=== PATIENT | female | born 1965 | race Caucasian/White ===

== ENCOUNTER 2017-03-14 11:25 | Emergency (ER) | payer MEDICAID ==
[~2017-03-14] VITALS: Ht 157.5 cm; Wt 93.1 kg
[~2017-03-14 11:25] MED LIST: CLIN150C2 PO; DIPH-423 PO; FURO20TA4 PO; GUAI120015 PO; OMEP20TA5 PO; PSEU-259 PO; ZOF4T PO
[2017-03-14 12:05] VITALS: BP 118/76
[2017-03-14] MEDS ORDERED: PRED10TA23 PO (13:00)
[2017-03-14] MEDS ORDERED: dexamethasone 4mg/ml inj IM SCH (13:05)
== END 2017-03-14 13:52 | disposition home or self-care (01) ==
LOC: ER 11:26
DX: L30.9 Dermatitis, unspecified (principal); G89.29 Other chronic pain; F17.200 Nicotine dependence, unspecified, uncomplicated; Z86.14 Personal history of Methicillin resistant Staphylococcus aureus infection; Z88.5 Allergy status to narcotic agent
CPT/HCPCS: 96372; 99283; J1100

== ENCOUNTER 2017-03-21 09:45 | Emergency (ER) | payer MEDICAID ==
[~2017-03-21] VITALS: Ht 157.5 cm; Wt 93.0 kg
[~2017-03-21 09:45] MED LIST changes: +PRED10TA23 PO
[2017-03-21] MEDS ORDERED: epiNEPHrine 1 mg/ml inj SQ ONE (11:45)
[2017-03-21] MEDS ORDERED: famotidine/PF 10 mg/ml inj IV ONE (11:45)
[2017-03-21] MEDS ORDERED: diphenhydrAMINE 50 mg/ml inj IV ONE (11:45)
[2017-03-21] MEDS ORDERED: ondansetron/PF 4mg/2ml inj IV ONE (11:45)
[2017-03-21] MEDS ORDERED: methylPREDNISolone sod succ 125mg/2ml vial IV ONE (11:45)
[2017-03-21] MEDS ORDERED: normal saline 1000ML IV soln IVB ONE (11:45)
[2017-03-21 12:06] LABS: BASOPHILS % (AUTO) 0.4 % (0-1); EOSINOPHILS # (AUTO) 0.1 X10'3 (0-0.9); EOSINOPHILS % (AUTO) 1.5 % (0-6); HEMATOCRIT 43.6 % (35.0-45.0); HEMOGLOBIN 14.5 g/dl (12.0-16.0); LYMPHOCYTES # (AUTO) 1.9 X10'3 (1.1-4.8); LYMPHOCYTES % (AUTO) 20.3 % (21-51); MEAN CORPUSCULAR HEMOGLOBIN 30.8 PG (27.0-31.0); MEAN CORPUSCULAR HGB CONC 33.2 % (33.0-36.5); MEAN CORPUSCULAR VOLUME 92.8 FL (78-98); MEAN PLATELET VOLUME 7.5 FL (7.4-10.4); MONOCYTES # (AUTO) 0.1 X10'3 (0-0.9); MONOCYTES % (AUTO) 0.8 % (2-12); NEUTROPHILS # (AUTO) 7.4 X10'3 (1.8-7.7); PLATELET COUNT 321 X10'3 (140-440); RED CELL DISTRIBUTION WIDTH 13.7 % (11.5-14.5); WHITE BLOOD COUNT 9.6 X10'3 (4.5-11.0)
[2017-03-21 12:23] LABS: ALANINE AMINOTRANSFERASE 26 U/L (12-78); ALBUMIN/GLOBULIN RATIO 0.9 (1.1-1.5); ALKALINE PHOSPHATASE 68 IU/L (46-116); ANION GAP 5 (8-16); ASPARTATE AMINO TRANSFERASE 13 U/L (10-37); BILIRUBIN,TOTAL 0.6 MG/DL (0.1-1.0); BLOOD UREA NITROGEN 14 MG/DL (7-18); BUN/CREATININE RATIO 17.7 (6.6-38.0); CALCIUM 8.1 MG/DL (8.5-10.1); CHLORIDE 106 MMOL/L (99-107); CREATININE 0.79 MG/DL (0.40-0.90); GLUCOSE 89 MG/DL (70-104); LIPASE 289 U/L (73-393); POTASSIUM 3.9 MMOL/L (3.5-5.1); SODIUM 140 MMOL/L (135-145); TOTAL CARBON DIOXIDE 28.6 MMOL/L (24-32); TOTAL PROTEIN 6.5 G/DL (6.4-8.2); eGFR 76 ML/MIN
[2017-03-21 12:52] VITALS: BP 109/65
[2017-03-21 13:53] LABS: CLARITY,URINE CLOUDY (Clear); COLOR,URINE YELLOW (Yellow); GLUCOSE, URINE NEGATIVE (Neg); KETONES,URINE TRACE mg/dl (Neg); LEUKOCYTE ESTERASE ,URINE NEGATIVE (Neg); NITRITES, URINE POSITIVE (Neg); OCCULT BLOOD,URINE NEGATIVE (Neg); PROTEIN,URINE NEGATIVE (Neg); UROBILINOGEN,URINE 0.2 E.U/dL (0.2-1.0)
[2017-03-21 13:58] LABS: UA COLLECTION TYPE VOIDED
[2017-03-21 13:59] LABS: BACTERIA,URINE 4+ /HPF (Neg); MUCUS STRANDS FEW /LPF (Neg); RBC,URINE NONE SEEN /HPF (0-2); SQUAMOUS EPITHELIAL CELL,UR FEW /LPF (FEW); TRANSITIONAL EPI CELLS,URINE FEW /HPF; WBC,URINE 0-4 /HPF (0-4)
== END 2017-03-21 14:07 | disposition home or self-care (01) ==
LOC: ER 09:46
DX: L50.9 Urticaria, unspecified (principal); L29.9 Pruritus, unspecified; T78.40XA Allergy, unspecified, initial encounter; R10.32 Left lower quadrant pain; G89.29 Other chronic pain; F17.200 Nicotine dependence, unspecified, uncomplicated; Z98.51 Tubal ligation status; Z86.14 Personal history of Methicillin resistant Staphylococcus aureus infection; Z88.5 Allergy status to narcotic agent; Z79.899 Other long term (current) drug therapy; Y92.9 Unspecified place or not applicable
CPT/HCPCS: 36415; 80053; 81001; 83690; 85025; 87077; 87088; 87186; 96372; 96374; 96375; 99284; J0171; J1200; J2405; J2930; J3490; J7030

== ENCOUNTER 2017-03-25 12:23 | Emergency (ER) | payer MEDICAID ==
[~2017-03-25] VITALS: Ht 157.5 cm; Wt 90.9 kg
[2017-03-25] MEDS ORDERED: PRED20TA PO (13:49)
[2017-03-25] MEDS ORDERED: famotidine 10mg tablet PO ONE (13:50)
[2017-03-25] MEDS ORDERED: dexamethasone 4mg tablet PO ONE (13:50)
[2017-03-25] MEDS ORDERED: diphenhydrAMINE 25mg capsule PO ONE (13:50)
[2017-03-25] MEDS ORDERED: famotidine 20mg tablet PO ONE (14:00)
[2017-03-25 14:14] VITALS: BP 123/79
== END 2017-03-25 14:16 | disposition home or self-care (01) ==
LOC: ER 12:25
DX: T78.40XA Allergy, unspecified, initial encounter (principal); L50.0 Allergic urticaria; G89.29 Other chronic pain; Z86.19 Personal history of other infectious and parasitic diseases; Z86.14 Personal history of Methicillin resistant Staphylococcus aureus infection; Z88.5 Allergy status to narcotic agent; Z79.899 Other long term (current) drug therapy; X58.XXXA Exposure to other specified factors, initial encounter
CPT/HCPCS: 93005; 99284; J7030; J8540; Q0163

== ENCOUNTER 2018-12-27 19:20 | Emergency (ER) | payer MEDICAID ==
[~2018-12-27] VITALS: Ht 157.5 cm; Wt 90.0 kg
[~2018-12-27 19:20] MED LIST changes: -PRED10TA23 PO
[2018-12-27 19:31] VITALS: BP 137/98
== END 2018-12-27 20:18 | disposition left against medical advice (07) ==
LOC: ER 19:21
DX: R07.89 Other chest pain (principal); R06.02 Shortness of breath; Z53.21 Procedure and treatment not carried out due to patient leaving prior to being seen by health care provider
CPT/HCPCS: 93005

== ENCOUNTER 2018-12-29 01:34 | Emergency (ER) | payer MEDICAID ==
[~2018-12-29] VITALS: Ht 157.5 cm; Wt 90.9 kg
[2018-12-29] MEDS ORDERED: normal saline 1000ML IV soln IVB ONE (02:10)
[2018-12-29] MEDS ORDERED: piperacillin/tazo 3.375gm/50ml 50 ML IV ONE (02:15)
[2018-12-29] MEDS ORDERED: acetaminophen 325mg tablet PO ONE (02:15)
[2018-12-29 02:23] LABS: BASOPHILS % (AUTO) 0.2 % (0-1); EOSINOPHILS % (AUTO) 0 % (0-6); HEMATOCRIT 41.5 % (35.0-45.0); HEMOGLOBIN 14.2 g/dl (12.0-16.0); LYMPHOCYTES # (AUTO) 0.7 X10'3 (1.1-4.8); LYMPHOCYTES % (AUTO) 7.6 % (21-51); MEAN CORPUSCULAR HEMOGLOBIN 31.4 PG (27.0-31.0); MEAN CORPUSCULAR HGB CONC 34.3 g/dL (33.0-36.5); MEAN CORPUSCULAR VOLUME 91.5 FL (78-98); MEAN PLATELET VOLUME 8.3 FL (7.4-10.4); MONOCYTES # (AUTO) 0.2 X10'3 (0-0.9); MONOCYTES % (AUTO) 2.3 % (2-12); NEUTROPHILS % (AUTO) 89.9 % (42-75); PLATELET COUNT 202 X10'3 (140-440); RED BLOOD COUNT 4.53 X10'6 (4.20-5.60); RED CELL DISTRIBUTION WIDTH 13.1 % (11.5-14.5); WHITE BLOOD COUNT 8.9 X10'3 (4.5-11.0)
[2018-12-29 02:25] LABS: PARTIAL THROMBOPLASTIN TIME 31 SECONDS (22-32)
[2018-12-29 02:28] LABS: ALANINE AMINOTRANSFERASE 39 U/L (12-78); ALBUMIN/GLOBULIN RATIO 0.7 (1.1-1.5); ALKALINE PHOSPHATASE 79 IU/L (46-116); ANION GAP 7 (8-16); ASPARTATE AMINO TRANSFERASE 40 U/L (10-37); BILIRUBIN,TOTAL 0.5 MG/DL (0.1-1.0); BLOOD UREA NITROGEN 12 MG/DL (7-18); BUN/CREATININE RATIO 11.7 (6.6-38.0); CALCIUM 8.7 MG/DL (8.5-10.1); CHLORIDE 100 MMOL/L (99-107); CREATININE 1.03 MG/DL (0.40-0.90); GLUCOSE 128 MG/DL (70-104); POTASSIUM 3.6 MMOL/L (3.5-5.1); SODIUM 132 MMOL/L (135-145); TOTAL CARBON DIOXIDE 25.1 MMOL/L (24-32); TOTAL PROTEIN 7.5 G/DL (6.4-8.2); eGFR 56 ML/MIN
--- NOTE | 2018-12-29 03:03 | NUR ---
LAB TO DRAW PT SECOND SET OF BLOOD CX .
[2018-12-29] MEDS ORDERED: BACDS PO (03:13)
[2018-12-29] MEDS ORDERED: proCHLORperazine 10 MG/2 ml inj IV ONE (03:20)
[2018-12-29] MEDS ORDERED: diphenhydrAMINE 50 mg/ml inj IV ONE (03:20)
[2018-12-29 04:11] VITALS: BP 129/53
== END 2018-12-29 04:09 | disposition home or self-care (01) ==
LOC: ER 01:35
DX: A46 Erysipelas (principal); R51 Headache; K21.9 Gastro-esophageal reflux disease without esophagitis; Z86.19 Personal history of other infectious and parasitic diseases; Z86.14 Personal history of Methicillin resistant Staphylococcus aureus infection; Z98.51 Tubal ligation status; Z79.2 Long term (current) use of antibiotics; Z79.899 Other long term (current) drug therapy; Z88.5 Allergy status to narcotic agent
CPT/HCPCS: 36415; 71045; 80053; 83605; 85025; 85610; 85730; 87040; 93005; 96365; 96375; 99284; J0780; J1200; J2543; J7030; J7040; J7050

== ENCOUNTER 2019-01-03 16:44 | Emergency (ER) | payer MEDICAID ==
[~2019-01-03] VITALS: Ht 175.3 cm; Wt 80.0 kg
[~2019-01-03 16:44] MED LIST changes: +BACDS PO
[2019-01-03 18:08] VITALS: BP 113/61
== END 2019-01-03 18:10 | disposition home or self-care (01) ==
LOC: ER 16:44
DX: M79.662 Pain in left lower leg (principal); K21.9 Gastro-esophageal reflux disease without esophagitis; G89.29 Other chronic pain; Z48.00 Encounter for change or removal of nonsurgical wound dressing; Z79.2 Long term (current) use of antibiotics; Z79.899 Other long term (current) drug therapy; Z86.14 Personal history of Methicillin resistant Staphylococcus aureus infection; Z98.51 Tubal ligation status; Z86.19 Personal history of other infectious and parasitic diseases
CPT/HCPCS: 99281

== ENCOUNTER 2019-06-03 08:57 | Emergency (ER) | payer MEDICAID ==
[~2019-06-03] VITALS: Ht 157.5 cm; Wt 93.2 kg
[~2019-06-03 08:57] MED LIST changes: -BACDS PO
[2019-06-03 09:54] LABS: URINE HCG NEGATIVE (NEG)
[2019-06-03 09:56] LABS: CLARITY,URINE CLEAR (Clear); COLOR,URINE YELLOW (Yellow); GLUCOSE, URINE NEGATIVE (Neg); KETONES,URINE NEGATIVE (Neg); LEUKOCYTE ESTERASE ,URINE NEGATIVE (Neg); NITRITES, URINE NEGATIVE (Neg); OCCULT BLOOD,URINE NEGATIVE (Neg); PH,URINE 5.5 (4.8-8.0); PROTEIN,URINE NEGATIVE (Neg); UROBILINOGEN,URINE 0.2 E.U/dL (0.2-1.0)
[2019-06-03 10:05] LABS: UA COLLECTION TYPE CLN CATCH MIDSTREAM
[2019-06-03 10:56] LABS: BASOPHILS % (AUTO) 0.2 % (0-1); EOSINOPHILS # (AUTO) 0.2 X10'3 (0-0.9); EOSINOPHILS % (AUTO) 3.7 % (0-6); HEMATOCRIT 46.8 % (35.0-45.0); HEMOGLOBIN 15.7 g/dl (12.0-16.0); LYMPHOCYTES # (AUTO) 1.8 X10'3 (1.1-4.8); LYMPHOCYTES % (AUTO) 29.1 % (21-51); MEAN CORPUSCULAR HGB CONC 33.6 g/dL (33.0-36.5); MEAN CORPUSCULAR VOLUME 92.2 FL (78-98); MEAN PLATELET VOLUME 7.5 FL (7.4-10.4); MONOCYTES # (AUTO) 0.3 X10'3 (0-0.9); MONOCYTES % (AUTO) 5.4 % (2-12); NEUTROPHILS # (AUTO) 3.7 X10'3 (1.8-7.7); NEUTROPHILS % (AUTO) 61.6 % (42-75); PLATELET COUNT 256 X10'3 (140-440); RED BLOOD COUNT 5.08 X10'6 (4.20-5.60); RED CELL DISTRIBUTION WIDTH 13.3 % (11.5-14.5); WHITE BLOOD COUNT 6.1 X10'3 (4.5-11.0)
[2019-06-03 11:13] LABS: ALANINE AMINOTRANSFERASE 38 U/L (12-78); ALBUMIN 3.7 G/DL (3.4-5.0); ALBUMIN/GLOBULIN RATIO 0.8 (1.1-1.5); ALKALINE PHOSPHATASE 90 IU/L (46-116); ANION GAP 7 (8-16); ASPARTATE AMINO TRANSFERASE 32 U/L (10-37); BILIRUBIN,TOTAL 0.3 MG/DL (0.1-1.0); BLOOD UREA NITROGEN 19 MG/DL (7-18); BUN/CREATININE RATIO 19.8 (6.6-38.0); CALCIUM 9.5 MG/DL (8.5-10.1); CHLORIDE 105 MMOL/L (99-107); CREATININE 0.96 MG/DL (0.40-0.90); GLUCOSE 79 MG/DL (70-104); LIPASE 166 U/L (73-393); POTASSIUM 4.3 MMOL/L (3.5-5.1); SODIUM 139 MMOL/L (135-145); TOTAL CARBON DIOXIDE 27.5 MMOL/L (24-32); TOTAL PROTEIN 8.2 G/DL (6.4-8.2); eGFR 61 ML/MIN
[2019-06-03] MEDS ORDERED: morphine 4 MG/ML inj SYRINge IV ONE (11:15)
[2019-06-03] MEDS ORDERED: normal saline 1000ML IV soln IVB ONE (11:15)
[2019-06-03] MEDS ORDERED: ondansetron/PF 4mg/2ml inj IV ONE (11:15)
--- NOTE | 2019-06-03 11:25 | NUR ---
Took items in to start IV and give IV fluids. Pt states, "I do not want any of that, I will go home and drink plenty of water. I do not want to be poked all the times it will take". Let JOSE CRUZ Gomez know that the patient is refusing. She will talk to the patient and then decide.
[2019-06-03] MEDS ORDERED: HYDR-3965 PO (11:30)
[2019-06-03] MEDS ORDERED: ONDA4TAB6 PO (11:30)
[2019-06-03] MEDS ORDERED: DOCU-148 PO (11:30)
[2019-06-03 11:52] VITALS: BP 119/74
== END 2019-06-03 11:54 | disposition home or self-care (01) ==
LOC: ER 08:58
DX: N20.0 Calculus of kidney (principal); R32 Unspecified urinary incontinence; K21.9 Gastro-esophageal reflux disease without esophagitis; G89.29 Other chronic pain; F17.210 Nicotine dependence, cigarettes, uncomplicated; Z86.14 Personal history of Methicillin resistant Staphylococcus aureus infection; Z98.51 Tubal ligation status; Z88.5 Allergy status to narcotic agent; Z79.899 Other long term (current) drug therapy
CPT/HCPCS: 36415; 76830; 76856; 80053; 81003; 81025; 83690; 85025; 99284

== ENCOUNTER 2020-04-14 06:33 | Emergency (ER) | payer MEDICAID ==
[~2020-04-14] VITALS: Ht 157.5 cm; Wt 97.0 kg
[~2020-04-14 06:33] MED LIST changes: +DOCU-148 PO; +ONDA4TAB6 PO
[2020-04-14 06:38] VITALS: BP 117/88
[2020-04-14] MEDS ORDERED: piperacillin/tazo 3.375gm/50ml 50 ML IV ONE (07:00)
[2020-04-14] MEDS ORDERED: sulfamethoxazole/trimethoprim DS (800/160mg) tablet PO ONE (08:20)
[2020-04-14] MEDS ORDERED: SULF1TAB49 PO (08:26)
[2020-04-14] MEDS ORDERED: ketorolac trometh inj. 60 MG/2 ML VIAL IM ONE (08:35)
== END 2020-04-14 08:49 | disposition home or self-care (01) ==
LOC: ER 06:33
DX: L03.116 Cellulitis of left lower limb (principal); K21.9 Gastro-esophageal reflux disease without esophagitis; G89.29 Other chronic pain; Z88.8 Allergy status to other drugs, medicaments and biological substances; Z79.2 Long term (current) use of antibiotics; Z79.899 Other long term (current) drug therapy; Z86.14 Personal history of Methicillin resistant Staphylococcus aureus infection; Z98.51 Tubal ligation status; Z86.19 Personal history of other infectious and parasitic diseases
CPT/HCPCS: 71045; 93005; 96372; 99283; J1885; 81003

== ENCOUNTER 2020-04-15 05:18 | Emergency (ER) | payer MEDICAID ==
[~2020-04-15] VITALS: Ht 157.5 cm; Wt 90.9 kg
[~2020-04-15 05:18] MED LIST changes: +SULF1TAB49 PO
[2020-04-15 05:29] VITALS: BP 137/88
[2020-04-15] MEDS ORDERED: ketorolac tromethamine 15mg/ml inj. IM ONE (05:30)
[2020-04-15] MEDS ORDERED: CefTRIAXone 250MG inj IM ONE (05:30)
[2020-04-15] MEDS ORDERED: CefTRIAXone 1000mg IM Kit (w/lidocaine diluent) IM ONE (05:45)
== END 2020-04-15 05:56 | disposition home or self-care (01) ==
LOC: ER 05:19
DX: L03.116 Cellulitis of left lower limb (principal); K21.9 Gastro-esophageal reflux disease without esophagitis; G89.29 Other chronic pain; E66.01 Morbid (severe) obesity due to excess calories; Z68.36 Body mass index [BMI] 36.0-36.9, adult; Z86.14 Personal history of Methicillin resistant Staphylococcus aureus infection; Z86.19 Personal history of other infectious and parasitic diseases; Z98.51 Tubal ligation status; Z88.8 Allergy status to other drugs, medicaments and biological substances; Z79.2 Long term (current) use of antibiotics; Z79.899 Other long term (current) drug therapy
CPT/HCPCS: 99282

== ENCOUNTER 2021-01-18 17:53 | Emergency (ER) | payer MEDICAID ==
[~2021-01-18] VITALS: Ht 157.5 cm; Wt 90.9 kg
[~2021-01-18 17:53] MED LIST changes: -SULF1TAB49 PO
[2021-01-18 17:56] VITALS: BP 138/92
[2021-01-18] MEDS ORDERED: SULF1TAB49 PO (18:55)
[2021-01-18] MEDS ORDERED: TETanus/Pertussis (Acell)/Diphther VAC/PF (Tdap-Adult) 0.5ml syringe IMVAC ONE (18:55)
== END 2021-01-18 19:14 | disposition home or self-care (01) ==
LOC: ER 17:54
DX: S80.811A Abrasion, right lower leg, initial encounter (principal); L03.115 Cellulitis of right lower limb; K21.9 Gastro-esophageal reflux disease without esophagitis; G89.29 Other chronic pain; Z98.51 Tubal ligation status; Z79.899 Other long term (current) drug therapy; Z88.1 Allergy status to other antibiotic agents; Z79.2 Long term (current) use of antibiotics; Z86.14 Personal history of Methicillin resistant Staphylococcus aureus infection; W01.0XXA Fall on same level from slipping, tripping and stumbling without subsequent striking against object, initial encounter; Y93.89 Activity, other specified; Y92.89 Other specified places as the place of occurrence of the external cause; Y99.8 Other external cause status
CPT/HCPCS: 90471; 90715; 99283

== ENCOUNTER 2022-02-21 10:22 | Emergency (ER) | payer MEDICAID ==
[~2022-02-21] VITALS: Ht 157.5 cm; Wt 81.8 kg
[~2022-02-21 10:22] MED LIST changes: +OMEP20TA43 PO; -OMEP20TA5 PO
[2022-02-21 11:39] VITALS: BP 128/83
[2022-02-21 13:13] LABS: URINE HCG NEGATIVE (NEG)
[2022-02-21 13:13] LABS: BASOPHILS % (AUTO) 0.6 % (0-1); EOSINOPHILS # (AUTO) 0.3 X10'3 (0-0.9); EOSINOPHILS % (AUTO) 4.4 % (0-6); HEMATOCRIT 43.7 % (35.0-45.0); HEMOGLOBIN 14.5 g/dl (12.0-16.0); LYMPHOCYTES # (AUTO) 1.9 X10'3 (1.1-4.8); LYMPHOCYTES % (AUTO) 30.4 % (21-51); MEAN CORPUSCULAR HEMOGLOBIN 30.9 PG (27.0-31.0); MEAN CORPUSCULAR HGB CONC 33.1 g/dL (33.0-36.5); MEAN CORPUSCULAR VOLUME 93.5 FL (78-98); MEAN PLATELET VOLUME 7.7 FL (7.4-10.4); MONOCYTES # (AUTO) 0.5 X10'3 (0-0.9); MONOCYTES % (AUTO) 7.7 % (2-12); NEUTROPHILS # (AUTO) 3.5 X10'3 (1.8-7.7); NEUTROPHILS % (AUTO) 56.9 % (42-75); PLATELET COUNT 266 X10'3 (140-440); RED BLOOD COUNT 4.68 X10'6 (4.20-5.60); RED CELL DISTRIBUTION WIDTH 13.3 % (11.5-14.5); WHITE BLOOD COUNT 6.1 X10'3 (4.5-11.0)
[2022-02-21 13:17] LABS: CLARITY,URINE CLEAR (Clear); COLOR,URINE YELLOW (Yellow); GLUCOSE, URINE NEGATIVE (Neg); KETONES,URINE NEGATIVE (Neg); LEUKOCYTE ESTERASE ,URINE NEGATIVE (Neg); NITRITES, URINE NEGATIVE (Neg); OCCULT BLOOD,URINE NEGATIVE (Neg); PH,URINE 6.5 (4.8-8.0); PROTEIN,URINE NEGATIVE (Neg); UROBILINOGEN,URINE 0.2 E.U/dL (0.2-1.0)
[2022-02-21 13:21] LABS: UA COLLECTION TYPE CLN CATCH MIDSTREAM
[2022-02-21 13:25] LABS: ALANINE AMINOTRANSFERASE 34 U/L (12-78); ALBUMIN 3.4 G/DL (3.4-5.0); ALBUMIN/GLOBULIN RATIO 0.8 (1.1-1.5); ALKALINE PHOSPHATASE 85 IU/L (46-116); ANION GAP 7 (8-16); ASPARTATE AMINO TRANSFERASE 29 U/L (10-37); BILIRUBIN,TOTAL 0.4 MG/DL (0.1-1.0); BLOOD UREA NITROGEN 18 MG/DL (7-18); BUN/CREATININE RATIO 20.5 (6.6-38.0); CHLORIDE 100 MMOL/L (99-107); CREATININE 0.88 MG/DL (0.40-0.90); GLUCOSE 90 MG/DL (70-104); LIPASE 429 U/L (73-393); POTASSIUM 4.4 MMOL/L (3.5-5.1); SODIUM 135 MMOL/L (135-145); TOTAL CARBON DIOXIDE 27.8 MMOL/L (24-32); TOTAL PROTEIN 7.6 G/DL (6.4-8.2); eGFR 66 ML/MIN
--- NOTE | 2022-02-21 15:31 | NUR ---
PT NOT IN LOBBY WHEN CALLED TO ROOM
== END 2022-02-21 15:40 | disposition left against medical advice (07) ==
LOC: ER 10:23
DX: R10.9 Unspecified abdominal pain (principal); Z53.21 Procedure and treatment not carried out due to patient leaving prior to being seen by health care provider
CPT/HCPCS: 36415; 80053; 81003; 81025; 83690; 85025

== ENCOUNTER 2022-12-22 15:44 | Emergency (ER) | payer MEDICAID ==
[~2022-12-22] VITALS: Ht 167.6 cm; Wt 150.0 kg
[2022-12-22 15:56] VITALS: BP 131/82; PULSE 105; RESP 18; O2SAT 98
--- NOTE | 2022-12-22 16:17 | NUR ---
pt here for right knee pain ot states no injury to the knee. + silvanang
--- NOTE | 2022-12-22 17:57 | NUR ---
Dr reardon states arthritis in right knee pt stable upon dc
[2022-12-22 17:58] VITALS: TEMP 97
== END 2022-12-23 06:33 | disposition home or self-care (01) ==
LOC: ER 15:45
DX: M17.11 Unilateral primary osteoarthritis, right knee (principal); G89.29 Other chronic pain
CPT/HCPCS: 99282

== ENCOUNTER 2023-06-25 19:30 | Emergency (ER) | payer MEDICAID ==
[~2023-06-25] VITALS: Ht 157.5 cm; Wt 90.9 kg
[2023-06-25] MEDS: acetaminophen 325mg tablet PO ONE (20:02)
[2023-06-25 20:21] LABS: BILIRUBIN,URINE NEGATIVE (Neg); CLARITY,URINE CLEAR (Clear); COLOR,URINE YELLOW (Yellow); GLUCOSE, URINE NEGATIVE (Neg); KETONES,URINE NEGATIVE (Neg); LEUKOCYTE ESTERASE ,URINE NEGATIVE (Neg); NITRITES, URINE NEGATIVE (Neg); OCCULT BLOOD,URINE SMALL (Neg); PROTEIN,URINE TRACE mg/dl (Neg)
[2023-06-25 20:23] LABS: UA COLLECTION TYPE CLN CATCH MIDSTREAM
[2023-06-25 20:29] LABS: BACTERIA,URINE 1+ /HPF (Neg); SQUAMOUS EPITHELIAL CELL,UR FEW /LPF (FEW)
[2023-06-25 20:30] LABS: MUCUS STRANDS FEW /LPF (Neg)
[2023-06-25] MEDS ORDERED: ketorolac trometh inj. 60 MG/2 ML VIAL IM ONE (21:15)
[2023-06-25] MEDS ORDERED: CEPH-585 PO (21:18)
[2023-06-25] MEDS ORDERED: PHEN-716 PO (21:18)
[2023-06-25] MEDS: ketorolac tromethamine 15mg/ml inj. IM ONE (21:29)
[2023-06-25 21:34] VITALS: BP 145/87; PULSE 91; RESP 17; TEMP 99.4; O2SAT 96
== END 2023-06-25 21:35 | disposition home or self-care (01) ==
LOC: ER 19:31
DX: N39.0 Urinary tract infection, site not specified (principal); K21.9 Gastro-esophageal reflux disease without esophagitis; Z98.51 Tubal ligation status; Z88.5 Allergy status to narcotic agent; Z79.2 Long term (current) use of antibiotics; Z79.899 Other long term (current) drug therapy
CPT/HCPCS: 81001; 87077; 87088; 87186; 96372; 99283; J1885